=== PATIENT | male | born 1955 | race Caucasian/White ===

== ENCOUNTER 2024-12-19 08:56 | Emergency (ER) | payer MEDICARE ==
[~2024-12-19] VITALS: Ht 170.2 cm; Wt 75.0 kg
[2024-12-19] MEDS ORDERED: AMLO-258 PO (09:00)
[2024-12-19] MEDS ORDERED: LISI-892 PO (09:00)
[2024-12-19 09:20] VITALS: BP 142/76; PULSE 63; RESP 18; TEMP 98.1; O2SAT 99
[2024-12-19] MEDS ORDERED: ACYC-138 PO (09:38)
== END 2024-12-19 09:48 | disposition home or self-care (01) ==
LOC: EMS 09:00
DX: B02.9 Zoster without complications (principal); I10 Essential (primary) hypertension; Z98.890 Other specified postprocedural states; Z79.899 Other long term (current) drug therapy
CPT/HCPCS: 99283; Z7502